=== PATIENT | male | born 1955 | race Caucasian/White ===

== ENCOUNTER 2017-01-26 21:04 | Inpatient (IN) | payer OTHER ==
--- NOTE | ~2017-01-26 | DS ---
Discharge Summary [facility] [address] [place]. [address] NAME: MELIDA MOLINA : 59 STATUS : DIS IN PAT#: [id number] AGE: 61 ADM/REG DATE : 01/27/17 MR#: [id number] REPORT SERV DATE: 01/29/17 DICTATED BY: Rito BRENNER DATE: 01/29/17 REPORT STATUS : Draft TRANSCRIBED BY: CHANDU DATE: 01/29/17 ADMISSION DATE: 01/27/2017 DISCHARGE DATE: 01/28/2017 DIAGNOSES AT THE TIME OF DISCHARGE: Acute diverticulitis with contained perforation, recent lung transplant at [facility] secondary to interstitial lung disease. CONSULTS: General Surgery. PROCEDURES: None. BRIEF SUMMARY: A very pleasant 61-year-old male patient, who had a lung transplant at [facility] roughly four months ago that was due to severe interstitial lung disease that had developed secondary to occupational lung exposure. The patient was admitted with abdominal pain and found on imaging to have acute diverticulitis with a small contained perforation, seen and evaluated by General Surgery. Recommendations were for bowel rest, IV fluids, IV antibiotics, and close observation. Because of his recent transplant and the concern for his transplant medications, we called [facility] to get their input. Because of their concern with IV antibiotics and the potential interaction for his antirejection medication, the decision was made that he would transition from [facility] to [facility] for ongoing treatment to allow for him to have close observation and management of his recent transplant. The patient initially did not have a bed at [facility], but when a bed became available on the evening of 01/28, the patient transitioned to [facility] in stable condition for ongoing evaluation and treatment. TIMUR/CHANDU Rito Brenner M.D. / [id number] CC: Rafael Stuart M.D.
--- NOTE | ~2017-01-26 | HP ---
History And Physical [place] [id number] [facility] [place]. [address] NAME: MELIDA MOLINA : 59 STATUS : ADM IN [facility]#: [id number] AGE: 61 ADM/REG DATE : 01/27/17 MR#: [id number] REPORT SERV DATE: 01/27/17 DICTATED BY: PAULINO JURADO DATE: 01/26/17 REPORT STATUS : Draft TRANSCRIBED BY: MODL DATE: 01/26/17 DATE OF ADMISSION: 01/27/2017 CHIEF COMPLAINT: Abdominal pain. HISTORY OF PRESENT ILLNESS: This is a 61-year-old gentleman with history of fairly recent bilateral lung transplant presenting with abdominal pain. The patient was going about a normal day up until this morning when he had an acute onset of abdominal pain with chills out of the blue. The patient had nausea and had vomited x1, but that is about the only other symptom other than abdominal pain. The patient reports that it is mainly abdominal pain and nothing else really bothers him. The patient did not have any changes to his bowel habits either. The patient decided to come to the ER for further evaluation and care. In the ER, patient was found to be borderline febrile with temperature of 100.0, but otherwise, the patient was hemodynamically stable. Initial lab evaluation was also fairly benign with benign electrolytes and benign CBC. White blood cell count was 3.5. The patient was then found to have a lactate level of 8.[address] of the abdomen and pelvis revealed a sigmoid focal diverticulitis with actually a perforation resulting in a small pneumoperitoneum. General Surgery was consulted, per ER, who came and evaluated the patient. They were inclined to watching the patient as he did not have any obvious abscess formation and the amount of pneumoperitoneum was small as well as the patient not being overtly septic. Internal Medicine consultation was requested for admission of the patient for further evaluation and care. In reviewing pertinent past medical history, the patient has had bilateral lung transplant at [facility] just four months ago in September of 2016. 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 The patient is on posttransplant immunosuppressants including CellCept and Prograf as well as a small dose of prednisone. The patient is also on prophylaxis against CMV with Valcyte as well as parasitic prophylaxis with methadone. The patient unfortunately does not remember his transplant service coordinator name down in [facility], and thus, I called their operators service and currently awaiting for [facility] to respond. The patient follows with Dr. Lyons here in town and Dr. Stinson was electronic warfare technical for. I called and spoke with Dr. Stinson, who deferred the answering of any further questions to transplant service coordinator. REVIEW OF SYSTEMS: The patient really did not have any fevers, but he did have chills. Otherwise, 14-point review of systems reviewed and negative other than mentioned above. MEDICATIONS: 1. Fosamax 70 mg p.o. every seven days. 2. Mepron 750 mg every Tuesday, Tuesday, and Tuesday. 3. Caltrate 600 plus D one tablet p.o. b.i.d. 4. Colace 100 mg p.o. b.i.d. 5. Folic acid 1 mg p.o. q.a.m. 6. Keppra 750 mg p.o. b.i.d. History And Physical [address] [address] NAME: MELIDA MOLINA : 59 STATUS : ADM IN [facility]#: [id number] AGE: 61 ADM/REG DATE : 01/27/17 MR#: [id number] REPORT SERV DATE: 01/27/17 DICTATED BY: PAULINO JURADO DATE: 01/26/17 REPORT STATUS : Draft TRANSCRIBED BY: CHANDU DATE: 01/26/17 7. Imodium 2 mg p.o. four times daily p.r.n. 8. Mag-Ox 400 mg p.o. b.i.d. 9. Toprol-XL 50 mg p.o. q.a.m. 10.Multivitamin one tab p.o. q.a.m. 11.CellCept 1000 mg p.o. b.i.d. 12.Protonix 40 mg p.o. q.a.m. 13.Prednisone 5 mg p.o. q.a.m. 14.Zoloft 50 mg p.o. q.a.m. 15.Prograf 4 mg p.o. b.i.d. 16.Valcyte 900 mg p.o. q.p.m. ALLERGIES: 1. LISINOPRIL. 2. MORPHINE. PAST MEDICAL HISTORY: The patient's main medical history is that he had severe COPD from his work at [employer]. The patient ended up getting bilateral lung transplant back in September of 2016 which is four months ago at [facility]. The patient unfortunately does not remember any of his physicians that were involved in the transplant process and he does not remember the name of his transplant service coordinator. The patient follows with Dr. Lyons here in [facility]. DICTATION ENDS HERE ERIC/CHANDU Paulino Jurado MD / [id number] CC: Rafael Stuart M.D.
--- NOTE | ~2017-01-26 | CN ---
Consultation Report [facility] [address] [place]. [address] NAME: MELIDA MOLINA : 59 STATUS : ADM IN PAT#: [id number] AGE: 61 ADM/REG DATE : 01/27/17 MR#: [id number] REPORT SERV DATE: 01/27/17 DICTATED BY: AARON MANN DATE: 01/26/17 REPORT STATUS : Draft TRANSCRIBED BY: MODL DATE: 01/26/17 SURGERY CONSULT NOTE DATE OF CONSULTATION: 01/26/2017 REASON FOR CONSULT: Diverticulitis. HISTORY OF PRESENT ILLNESS: This is a 61-year-old male with a history of lung transplant in September, who presents today with acute onset of left lower quadrant pain. The patient states that he has had some abdominal pressure in a bandlike distribution across his lower abdomen since surgery, which has been worked up extensively at [facility] with essentially no explanation of the pain; however, the patient states this pain was not a pressure, but a sharp pain, which made him hurt to move. He came to the emergency department and was evaluated including receiving CT scan, which showed free air outside the colon. In reviewing the scan, there is some free air outside the colon with [id number] amount of stranding in the vicinity; however, no abscess or free fluid is seen. PAST MEDICAL HISTORY: COPD; hypertension; depression; and neurologic disorder, which was not called a seizure, but is being treated with Keppra. PAST SURGICAL HISTORY: Multiple thoracoscopies and wedge resections for COPD and spontaneous pneumothorax resulting in lung transplant in September. MEDICATIONS: Home medications include Fosamax, atovaquone, calcium, Colace, folic acid, Keppra, Imodium, magnesium, metoprolol, multivitamin, CellCept, Protonix, prednisone, Zoloft, Prograf, valganciclovir. ALLERGIES: INCLUDE MORPHINE AND LISINOPRIL. SOCIAL HISTORY: The patient denies any tobacco or alcohol use at this time. REVIEW OF SYSTEMS: A comprehensive review of symptoms was performed and is negative other than the HPI. PHYSICAL EXAMINATION: GENERAL: This is a 61-year-old male, looks his stated age, in no acute distress. VITAL SIGNS: Temp 100, blood pressure 118/87, heart rate 75, respiratory rate 26, O2 saturation 100% on room air. NEURO: The patient is alert and oriented x3. No focal sensory or motor deficits. HEENT: The patient is normocephalic. Head is atraumatic. Pupils are equal, round, reactive to light. Extraocular muscles are intact. NECK: Supple. Trachea is midline. HEART: Regular rate and rhythm. No murmurs, gallops, or rubs. CHEST: Somewhat coarse breath sounds bilaterally. No rhonchi. No wheezes. ABDOMEN: Soft, nondistended. Tender to palpation, especially across the lower abdomen with Consultation Report [facility] [address] [place]. [address] NAME: MELIDA MOLINA : 59 STATUS : ADM IN PAT#: [id number] AGE: 61 ADM/REG DATE : 01/27/17 MR#: [id number] REPORT SERV DATE: 01/27/17 DICTATED BY: AARON MANN DATE: 01/26/17 REPORT STATUS : Draft TRANSCRIBED BY: MODJuan A DATE: 01/26/17 some rebound. Really worse in the right lower quadrant rather than the left lower quadrant; however, minimal tenderness in the left upper quadrant. Positive bowel sounds. EXTREMITIES: The patient moves all extremities. LABORATORY DATA: White count 3.5, hemoglobin 11.9, hematocrit 36.8, platelets 297. Sodium 145, potassium 5.1, chloride 108, CO2 of 21, BUN 19, creatinine 1.5, glucose 102. Lactate 8.1. ASSESSMENT AND PLAN: This is a 61-year-old male with perforated diverticulitis. Plan on admitting the patient with IV fluid resuscitation and IV antibiotics. Zosyn has already been started and recommend continuing this. In evaluating the patient, the patient's abdominal pain is slightly worse than I would anticipate; however, the patient did have some previous abdominal wall pain and according to the patient's , he did have pain on exam prior to this episode. We will need to recheck the patient's lactate after some fluid resuscitation to make sure it is coming down. Given the patient's exam, I do not feel this is an ischemic problem; however, we will need to closely follow these levels. Given the patient is also a poor operative candidate, given his medical comorbidities, we will try to hold on operating on the patient if it can be avoided. This has been discussed with Dr. Mann, who agrees to this plan. DICTATED BY: MD JUSTINE Leiva/CHANDU Aaron Mann M.D. / [id number] CC: Rafael Stuart M.D.
--- NOTE | ~2017-01-26 | HP ---
History And Physical [place] [address] [place]. [address] NAME: MELIDA MOLINA : 59 STATUS : ADM IN [facility]#: [id number] AGE: 61 ADM/REG DATE : 01/27/17 MR#: [id number] REPORT SERV DATE: 01/27/17 DICTATED BY: PAULINO JURADO DATE: 01/26/17 REPORT STATUS : Draft TRANSCRIBED BY: MODL DATE: 01/26/17 DATE OF ADMISSION: 01/27/2017 CHIEF COMPLAINT: Abdominal pain. HISTORY OF PRESENT ILLNESS: This is a 61-year-old gentleman with history of lung transplant presenting with abdominal pain. The patient was going about a fairly normal day until this morning when he had a sudden onset of acute sharp abdominal pain along with chills out of the blue. The patient also had some nausea with vomiting x1, but otherwise, his main symptom was the pain. The patient came to the ER for further evaluation and care. In the ER, the patient was found to be borderline febrile with temperature of 100.0. The patient was otherwise hemodynamically stable. Initial lab evaluation was fairly unremarkable, but the patient was found to have a lactate level of 8.1, along with CT of the abdomen and pelvis showing a sigmoid focal diverticulitis with perforation causing a small pneumoperitoneum. The patient was seen by General Surgery who wanted to manage the patient conservatively with broad-spectrum antibiotics without any plans for urgent surgical intervention. Internal Medicine consultation was thus requested for admission of the patient for further evaluation and care. Upon reviewing pertinent past medical history, the patient had bilateral lung transplant back in September of 2006 which is just three to four months ago at [facility]. The patient is followed by Dr. Pearce and their answering service phone number is [phone]. I called and was able to talk to Dr. William Trent, who was transplant supervisor laundry on-call. He actually suggested transferring the patient down to [facility] for further care perhaps in the morning since they do not have an open bed in their medical center. Dr. William Trent's personal number is [phone]. Also, Dr. Trent's recommendation was to continue all of the patient's immunosuppressants despite a potentially life-threatening acute infection. REVIEW OF SYSTEMS: The patient did not have fever, but had chills at home. Also, 14-point review of systems reviewed and negative other than mentioned above. MEDICATIONS: 1. Fosamax 70 mg p.o. every seven days. 2. Mepron 750 mg p.o. Tuesday, Tuesday, and Tuesday. 3. Caltrate 600 plus D one tablet p.o. b.i.d. 4. Colace 100 mg p.o. b.i.d. 5. Folic acid 1 mg p.o. q.a.m. 6. Keppra 750 mg p.o. b.i.d. 7. Imodium 2 mg p.o. four times daily p.r.n. 8. Mag-Ox 400 mg p.o. with lunch and supper. 9. Toprol 50 mg p.o. q.a.m. 10.Multivitamin one tab p.o. q.a.m. 11.CellCept 1000 mg p.o. b.i.d. 12.Protonix 40 mg p.o. q.a.m. History And Physical [address] [address] NAME: MELIDA MOLINA : 59 STATUS : ADM IN [facility]#: [id number] AGE: 61 ADM/REG DATE : 01/27/17 MR#: [id number] REPORT SERV DATE: 01/27/17 DICTATED BY: PAULINO JURADO DATE: 01/26/17 REPORT STATUS : Draft TRANSCRIBED BY: CHANDU DATE: 01/26/17 13.Prednisone 5 mg p.o. q.a.m. 14.Zoloft 50 mg p.o. q.a.m. 15.Prograf 4 mg p.o. b.i.d. 16.Valcyte 900 mg p.o. q.p.m. ALLERGIES: 1. MORPHINE. 2. LISINOPRIL. 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 The patient follows with Dr. Bryce Pearce. The patient also follows with Dr. Lyons, here in [facility]. The patient, otherwise denies any past medical history. PAST SURGICAL HISTORY: Lung transplant back in September. FAMILY HISTORY: Negative. SOCIAL HISTORY: The patient does not smoke, he has quit smoking since 2003. The patient does not drink alcohol or use any illicit drugs. The patient is at home with his . PHYSICAL EXAMINATION: VITAL SIGNS: Temperature 100.0 blood pressure 118/87, pulse 75, respiratory rate is 16, and saturating 100% on room. NEURO: The patient is alert and oriented x3 with no focal neurologic deficits. GENERAL: The patient is awake, does not appear to be in acute distress, and he is cooperative. NECK: No JVD. No lymphadenopathy. Normal thyroid. CHEST: No midline sternotomy scar and no tenderness to palpation. LUNGS: Actually fairly clear to auscultation bilaterally with normal respiratory effort on room air. CARDIOVASCULAR: Regular rate and rhythm with no murmurs, rubs, or gallops, and PMI is nondisplaced. ABDOMEN: Soft and it is actually diffusely tender to even a light palpation. I cannot appreciate any active bowel sounds. EXTREMITIES: No edema. Normal distal pulses. No calf tenderness. SKIN: Clean, dry, warm, and intact. LABORATORY DATA: Sodium is 145, potassium 5.1, chloride 108, BUN 19, creatinine 1.56, glucose 102, calcium 9.4. LFTs are within normal limits. White blood cell count is 3.5, hemoglobin 11.9, platelets 297. INR is 1.1. Lactate is 8.1 and urinalysis was benign. CT of the abdomen and pelvis revealed a sigmoid focal diverticulitis with perforation and a small pneumoperitoneum. ASSESSMENT: This is a 61-year-old gentleman with history of bilateral lung transplant presenting with acute diverticulitis. History And Physical [address] [address] NAME: MELIDA MOLINA : 59 STATUS : ADM IN [facility]#: [id number] AGE: 61 ADM/REG DATE : 01/27/17 MR#: [id number] REPORT SERV DATE: 01/27/17 DICTATED BY: PAULINO JURADO DATE: 01/26/17 REPORT STATUS : Draft TRANSCRIBED BY: MODJuan A DATE: 01/26/17 1. Acute diverticulitis with perforation and pneumoperitoneum. 2. Lactic acidosis. 3. Lung transplant four months ago, on chronic immunosuppressive therapy. 4. Acute kidney injury versus renal insufficiency. PLAN: My plan is to admit the patient under telemetry monitoring. The patient will actually be admitted to [facility] and to be closely monitored as the patient has a potential to get really sick. The patient was already seen by surgery and they will follow the patient closely. The patient will be given IV fluid resuscitation, and he will be kept n.p.o., and he will be treated empirically with IV Zosyn. Based on my discussion with Dr. William Trent, the patient will be continued on all of his immunosuppressive therapy along with the antibiotics above. The patient's Prograf trough level will be monitored on a daily basis, and while that the normal levels should be 15 to 18, it is apparently okay to decrease the doses to shoot for trough level of 10 to 12 during acute illness. The tentative plan is to continue communicating with Dr. Trent or the transplant service team at [facility] on a daily basis and initiate transfer of the patient to [facility] whenever they have a bed available. Otherwise, daily labs will be closely monitored including lactate and CBC. I will also repeat KUB in the morning. Again Dr. William Trent's person number is [phone] and the reflow operator at Transplant Service is [phone]. Standard DVT prophylaxis. The patient is full code at this time. YSC/MODL Paulino Jurado MD / [id number] CC: Rafael Stuart M.D.
[2017-01-26 20:01] LABS: BASOPHILS 0.3 %; BASOPHILS ABSOLUTE 0.01 10/3/uL (0.0-0.16); EOSINOPHILS 0.6 %; EOSINOPHILS ABSOLUTE 0.02 10/3/uL (0.0-0.53); ER CBC TAT 0 Hrs 05 Mins; IMMATURE GRANULOCYTES 0.9 %; IMMATURE GRANULOCYTES ABSOLUTE 0.03 10/3/uL (0.0-0.11); LYMPHOCYTES 25.2 %; LYMPHOCYTES ABSOLUTE 0.88 10/3/uL (0.67-4.30); MEAN CORPUSCULAR HEMOGLOB 30.1 pg (26.0-34.0); MEAN PLATELET VOLUME 10.4 fL (9.2-13.0); MONOCYTES 4.6 %; MONOCYTES ABSOLUTE 0.16 10/3/uL (0.21-1.20); NEUTROPHILS 68.4 %; NEUTROPHILS ABSOLUTE 2.39 10/3/uL (2.02-8.40); PLATELET COUNT 297 10/3/uL (150-400); RBC DISTRIBUTION WIDTH 13.8 % (12.0-16.0); WHITE BLOOD CELLS 3.5 10/3/uL (4.5-10.5)
[2017-01-26 20:02] LABS: HEMATOCRIT 36.8 % (40.0-51.0); HEMOGLOBIN 11.9 g/dL (13.6-17.8); MANUAL DIFF NO %; MEAN CORPUS HGB CONC 32.3 g/dL (32.0-36.0); MEAN CORPUSCULAR VOLUME 92.9 fL (80-100); RED CELL COUNT 3.96 10/6/uL (4.7-6.1)
[2017-01-26 20:09] LABS: INTERNATIONAL NORMAL RATI 1.1 UNITS (-); PROTIME (NOT ORD) 13.6 SEC (12.0-14.5)
[2017-01-26 20:16] LABS: A/G RATIO 1.3 (0.7-1.9); CALCIUM, SERUM 9.4 MG/DL (8.5-10.4); CHLORIDE, SERUM 108 MMOL/L (96-112); GLOBULIN 3.1 G/DL (2.5-4.1); GLUCOSE, SERUM 102 MG/DL (60-99); POTASSIUM, SERUM 5.1 MMOL/L (3.5-5.3); SGOT(AST) 15 U/L (5-40); SGPT(ALT) 20 U/L (5-65); SODIUM, SERUM 145 MMOL/L (135-148); TOTAL BILIRUBIN 0.4 MG/DL (0-1.2); TOTAL PROTEIN 7.1 G/DL (6.0-8.5)
[2017-01-26 20:17] LABS: ALKALINE PHOSPHATASE 56 U/L (45-117); BUN (BLOOD UREA NITROGEN) 19 MG/DL (6-23); CO2 (CARBON DIOXIDE) 21 MMOL/L (24-34); CREATININE 1.56 MG/DL (0.70-1.30); GFR AFRICAN AMERICAN 56 ML/MIN (>=60); GFR NON AFRICAN AMERICAN 48 ML/MIN (>=60)
[~2017-01-26 21:04] MED LIST: ADVAIR INH; CLINDA150 PO; PRIN10 PO; SPIRIVA INH; T300 PO; ZOL50 PO
[2017-01-26 21:26] LABS: ASCORBIC ACID (UR NOT ORDER) NEG (NEG); BILIRUBIN, URINE NEGATIVE (NEG); ER URINALYSIS TAT 0 Hrs 15 Mins; KETONE, URINE NEGATIVE (NEG); LEUKOCYTE ESTERASE(NOT OR NEG (NEG); NITRITE (URINE) NEG (NEG); WBC (NOT ORDERED) (RFLEX) < 1 (0-5)
[2017-01-26] MEDS ORDERED: PROGRAF1 PO (21:37)
[2017-01-26] MEDS ORDERED: P5 PO (21:38)
[2017-01-26] MEDS ORDERED: CELLCEPT5 PO (21:38)
[2017-01-26] MEDS ORDERED: MEPRON SUS750 MG/5 M PO (21:44)
[2017-01-26] MEDS ORDERED: ZOL50 PO (21:45)
[2017-01-26] MEDS ORDERED: VALCYTE PO (21:45)
[2017-01-26] MEDS ORDERED: KEPPRA250 PO (21:46)
[2017-01-26] MEDS ORDERED: TOPXL50 PO (21:46)
[2017-01-26] MEDS ORDERED: MULTIVIT/MIN PO (21:46)
[2017-01-26] MEDS ORDERED: CALTRA600D PO (21:47)
[2017-01-26] MEDS ORDERED: FOSAMAX70 MG PO (21:47)
[2017-01-26] MEDS ORDERED: MAGOX4 PO (21:47)
[2017-01-26] MEDS ORDERED: DSS PO (21:48)
[2017-01-26] MEDS ORDERED: FOLIC PO (21:48)
[2017-01-26] MEDS ORDERED: PROTONIX PO (21:48)
[2017-01-26] MEDS ORDERED: IMOD PO (21:48)
[2017-01-27 04:29] LABS: BASOPHILS 0.3 %; BASOPHILS ABSOLUTE 0.01 10/3/uL (0.0-0.16); EOSINOPHILS 0 %; HEMOGLOBIN 10.1 g/dL (13.6-17.8); IMMATURE GRANULOCYTES 3.5 %; IMMATURE GRANULOCYTES ABSOLUTE 0.13 10/3/uL (0.0-0.11); LYMPHOCYTES 14.1 %; LYMPHOCYTES ABSOLUTE 0.53 10/3/uL (0.67-4.30); MEAN CORPUS HGB CONC 31.5 g/dL (32.0-36.0); MEAN CORPUSCULAR HEMOGLOB 29.2 pg (26.0-34.0); MEAN CORPUSCULAR VOLUME 92.8 fL (80-100); MEAN PLATELET VOLUME 10.8 fL (9.2-13.0); MONOCYTES 8.2 %; MONOCYTES ABSOLUTE 0.31 10/3/uL (0.21-1.20); NEUTROPHILS 73.9 %; NEUTROPHILS ABSOLUTE 2.78 10/3/uL (2.02-8.40); PLATELET COUNT 241 10/3/uL (150-400); RBC DISTRIBUTION WIDTH 14.3 % (12.0-16.0); RED CELL COUNT 3.46 10/6/uL (4.7-6.1); WHITE BLOOD CELLS 3.8 10/3/uL (4.5-10.5)
[2017-01-27 04:39] LABS: HEMATOCRIT 32.1 % (40.0-51.0); MANUAL DIFF NO %
[2017-01-27 04:54] LABS: A/G RATIO 1.2 (0.7-1.9); ALBUMIN 3.2 G/DL (3.5-5.0); BUN (BLOOD UREA NITROGEN) 18 MG/DL (6-23); CHLORIDE, SERUM 112 MMOL/L (96-112); CO2 (CARBON DIOXIDE) 25 MMOL/L (24-34); CREATININE 1.12 MG/DL (0.70-1.30); GFR AFRICAN AMERICAN 83 ML/MIN (>=60); GFR NON AFRICAN AMERICAN 72 ML/MIN (>=60); GLOBULIN 2.7 G/DL (2.5-4.1); GLUCOSE, SERUM 105 MG/DL (60-99); POTASSIUM, SERUM 4.5 MMOL/L (3.5-5.3); SGOT(AST) 14 U/L (5-40); SGPT(ALT) 15 U/L (5-65); SODIUM, SERUM 144 MMOL/L (135-148); TOTAL BILIRUBIN 0.7 MG/DL (0-1.2); TOTAL PROTEIN 5.9 G/DL (6.0-8.5)
[2017-01-27 04:58] LABS: ALKALINE PHOSPHATASE 39 U/L (45-117); CALCIUM, SERUM 7.7 MG/DL (8.5-10.4)
[2017-01-27 06:43] LABS: PROCALCITONIN 7.13 ng/mL (<0.5)
== END 2017-01-28 21:23 | disposition short-term general hospital (02) | DRG 392 ==
LOC: ER 21:04 → IMCU 01-27 00:10
PROVIDERS: Emergency Medicine; Internal Medicine
DX: K57.80 Diverticulitis of intestine, part unspecified, with perforation and abscess without bleeding (principal); N17.9 Acute kidney failure, unspecified; E87.2 Acidosis; Z94.2 Lung transplant status; K66.8 Other specified disorders of peritoneum; J44.9 Chronic obstructive pulmonary disease, unspecified
CPT/HCPCS: 74020; 74176; 80053; 80197; 81001; 83605; 84145; 85025; 85610; 87040; 96365; 96375; 99285; A9270-GY; J1170; J2405; J2543; J2550; J7507